=== PATIENT | male | born 2005 | race Caucasian/White ===

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

== ENCOUNTER 2023-04-01 15:03 | Emergency (ER) | payer BC ==
[~2023-04-01] VITALS: Ht 177.8 cm; Wt 86.2 kg
--- NOTE | 2023-04-01 15:22 | NUR ---
seen and examined by
[2023-04-01] MEDS ORDERED: LIDOCAINE HCL 1% 20 ML VIAL ONE (15:29)
[2023-04-01] MEDS ORDERED: ACETAMINOPHEN 325 MG TABLET ONE (15:29)
[2023-04-01] MEDS ORDERED: TDAP DIPH,PERTUSS,TET VAC/PF 0.5 ML DISP.SYRIN IM ONE ×2 (15:29→15:30)
[2023-04-01] MEDS ORDERED: NEOMY/BACITRA/POLYMYXIN B OINT UD PACKET TP ONE ×2 (15:29→15:30)
[2023-04-01] MEDS ORDERED: LIDOCAINE HCL 1% 20 ML VIAL TP ONE (15:30)
[2023-04-01] MEDS ORDERED: ACETAMINOPHEN ES 500 MG TABLET PO ONE (15:30)
[2023-04-01 16:13] VITALS: BP 122/80; TEMP 98; O2SAT 99
--- NOTE | 2023-04-01 16:13 | NUR ---
Patient discharged to home in stable condition. Written and verbal after care instructions given. Patient verbalizes understanding of instructions. Stressed follow up or return to ER for worsening s/s.
== END 2023-04-01 16:14 | disposition home or self-care (01) ==
LOC: ER 15:03
DX: S61.012A Laceration without foreign body of left thumb without damage to nail, initial encounter (principal); W26.0XXA Contact with knife, initial encounter; Y93.89 Activity, other specified; Y92.89 Other specified places as the place of occurrence of the external cause; Y99.8 Other external cause status
CPT/HCPCS: 12001; 90471; 90715; 99283; J3490; A4663

== ENCOUNTER 2024-04-03 10:58 | Emergency (ER) | payer BC ==
[~2024-04-03] VITALS: Ht 177.8 cm; Wt 90.7 kg
[2024-04-03 11:13] VITALS: O2SAT 98
[2024-04-03] MEDS ORDERED: LIDOCAINE HCL 2% 20 ML VIAL ONE (11:26)
[2024-04-03] MEDS ORDERED: LET TOPICAL SOLUTION 8 ML UDC ONE (11:29)
[2024-04-03] MEDS: LET TOPICAL SOLUTION 8 ML UDC TP ONE (11:37)
== END 2024-04-03 12:47 | disposition home or self-care (01) ==
LOC: ER 10:59
DX: S63.591A Other specified sprain of right wrist, initial encounter (principal); S50.812A Abrasion of left forearm, initial encounter; S50.811A Abrasion of right forearm, initial encounter; V98.8XXA Other specified transport accidents, initial encounter; Y93.89 Activity, other specified; Y92.89 Other specified places as the place of occurrence of the external cause; Y99.8 Other external cause status
CPT/HCPCS: A4606; A4663; J3490